=== PATIENT | male | born 2005 ===

== ENCOUNTER 2025-09-06 19:52 | Emergency (ER) | payer MEDICAID ==
[~2025-09-06] VITALS: Ht 172.7 cm; Wt 79.5 kg
[2025-09-06 20:01] VITALS: TEMP 98.1
[2025-09-06 20:35] LABS: CALCIUM, TOTAL 8.8 mg/dL (8.8-10.5); CREATININE 0.94 mg/dL (0.60-1.30); GLOMERULAR FILTR. RATE CALC > 60 mL/min (>60); GLUCOSE,RANDOM 102 mg/dL (70-110); SODIUM SERUM 138 mmol/L (136-145); UREA NITROGEN, BLOOD 13 mg/dL (7-18)
[2025-09-06 20:37] LABS: PLATELET COUNT (AUTO) 226 K/uL (150-450); RED BLOOD CELL COUNT(AUTO) 4.95 MIL/uL (4.50-5.90); RED CELL DISTRIBUTION WIDTH 13.1 % (11.5-14.5); WHITE BLOOD COUNT (AUTO) 7.5 K/uL (4.5-11.0)
[2025-09-06 20:38] LABS: APPEARANCE,URINE CLEAR (CLEAR); GLUCOSE, URINE (UA) NEGATIVE (NEGATIVE); LEUKOCYTE ESTERASE ,URINE NEGATIVE (NEGATIVE); NITRATE,URINE NEGATIVE (NEGATIVE); OCCULT BLOOD,URINE NEGATIVE (NEGATIVE); SPECIFIC GRAVITIY, URINE 1.018 (1.003-1.030)
[2025-09-06 21:45] VITALS: BP 129/69; PULSE 56; RESP 14; O2SAT 100
== END 2025-09-06 22:41 | disposition home or self-care (01) ==
LOC: EMS 19:57
DX: R10.11 Right upper quadrant pain (principal)
CPT/HCPCS: 80048; 81003; 83690; 85025; 99283